=== PATIENT | female | born 1975 | race Caucasian/White ===

== ENCOUNTER → 2018-07-23 | Outpatient (CLI) | payer BC, OTHER ==
[2018-07-23 13:22] LABS: BILIRUBIN,URINE NEGATIVE (NEG); CLARITY,URINE CLEAR; COLOR,URINE YELLOW; NITRITE,URINE NEGATIVE (NEG); PROTEIN,URINE NEGATIVE (NEG-TRACE); UROBILINOGEN,URINE 0.2 mg/dL (0.2 mg/dL)
[2018-07-23 13:30] LABS: BACTERIA,URINE MODERATE /HPF (0-FEW); RBC,URINE OCC /HPF (0-2); SQUAMOUS EPITHELIAL CELL,UR MOD /LPF
--- NOTE | 2018-07-23 13:46 | RAD ---
Examination: Ultrasound right lower extremity venous duplex HISTORY: History of right leg pain, swelling TECHNIQUE: Grayscale, color Doppler 2-D, spectral waveform analysis of the right lower extremity venous system was performed FINDINGS: The visualized common femoral vein, sequential femoral vein, popliteal vein demonstrate normal compression augmentation of flow. The visualized calf veins are patent In the region of pain, in the posterior lateral distal thigh there is a varicose vein demonstrates echogenicity within could be a thrombosed varicose vein IMPRESSION: 1. No evidence of deep venous thrombosis. 2. Thrombosed varicose superficial vein identified in the posterior lateral distal thigh region. Electronically signed by: Chapito Chavarria MD (07/23/2018 1:42 PM) [place] [id number]
[2018-07-23 13:59] LABS: ALBUMIN 3.7 g/dL (3.4-5.0); CALCIUM 9.3 mg/dL (8.5-10.1); CREATININE 0.8 mg/dL (0.6-1.0); GFR 78.3; POTASSIUM 3.6 mmol/L (3.5-5.1); TOTAL BILIRUBIN 0.8 mg/dL (0.2-1.0); TOTAL PROTEIN 7.5 g/dL (6.4-8.2)
[2018-07-23 14:00] LABS: CHOLESTEROL/HDL RATIO 4.3
[2018-07-23 14:08] LABS: FREE T4 0.97 ng/dL (0.76-1.46); THYROID STIM HORMONE (TSH) 3.086 uIU/mL (0.358-3.74)
[2018-07-23 22:15] LABS: CREAT RD UR 62.9 mg/dL (Not Estab.); MICRO CREAT RATIO <4.8 mg/g creat (0.0-30.0); MICROALB RD UR <3.0 ug/mL (Not Estab.)
[2018-07-24 19:14] LABS: HEMOGLOBIN A1C 5.7 % (4.8-5.6)
== END | disposition home or self-care (01) ==
LOC: US 12:13
PROVIDERS: ATTEND Family Medicine
DX: I83.891 Varicose veins of right lower extremity with other complications (principal); I10 Essential (primary) hypertension; E03.9 Hypothyroidism, unspecified; E78.5 Hyperlipidemia, unspecified; R73.01 Impaired fasting glucose
CPT/HCPCS: 36415; 80053; 80061; 81001; 82043; 82570; 83036; 84439; 84443; 87086; 93971

== ENCOUNTER → 2018-08-17 | Outpatient (CLI) | payer BC, OTHER ==
--- NOTE | 2018-08-17 15:23 | KCIC ---
3 view right knee 08/17/2018 Clinical indications: Anterior right knee pain for one month. COMPARISON: None. FINDINGS: Joint spaces maintained. There is a small suprapatellar knee joint effusion. No acute fracture or traumatic malalignment. Normal bony mineralization. IMPRESSION: 1. No acute osseous abnormality. 2. Small knee joint effusion. Electronically signed by: Esteban Donovan MD (08/17/2018 3:19 PM) [id number]
== END | disposition home or self-care (01) ==
LOC: KCIC 09:55
PROVIDERS: ATTEND Family Medicine
DX: M25.461 Effusion, right knee (principal)
CPT/HCPCS: 73562

== ENCOUNTER → 2018-09-16 | Outpatient (CLI) | payer BC, OTHER ==
--- NOTE | 2018-09-16 17:23 | KCIC ---
History: Routine Screening. Technique: Bilateral digital mammographic routine views were obtained with CAD - computer aided detection. Previous: March 09, 2015. Findings: Breast Tissue Density B :The breast tissue is composed of mixed fatty and fibroglandular tissue. There is an asymmetric density in the medial left breast on the CC view MLO view. There are no other suspicious findings. Recommendations: The patient should return for the following views: Rolled CC views, spot MLO view, an ML view to exclude a mass. Ultrasound may be necessary as well. BI-RADS Category 0: Incomplete. Need additional imaging evaluation. The mammography staff will provide imaging followup orders and will contact the patient for followup. "Our facility is accredited by the [employer] Mammography Program." Electronically signed by: Sanchez Sanon III, MD (09/16/2018 5:20 PM) [facility]
== END | disposition home or self-care (01) ==
LOC: KCIC MAMMO 15:07
PROVIDERS: ATTEND Family Medicine
DX: Z12.31 Encounter for screening mammogram for malignant neoplasm of breast (principal)
CPT/HCPCS: 77067

== ENCOUNTER → 2018-09-28 | Outpatient (CLI) | payer BC, MEDICAID ==
--- NOTE | 2018-09-28 09:10 | KCIC ---
LEFT DIAGNOSTIC MAMMOGRAPHY History: Abnormal screening mammogram. Comparison: Bilateral mammogram September 16, 2018 and diagnostic left mammogram March 22, 2015. Technique: Left ML, spot compression MLO and CC, and rolled medial and lateral CC digital mammogram views were obtained. Findings: Breast Tissue Density B : There are scattered areas of fibroglandular density. Asymmetry in the inner left breast mostly resolves with spot compression. Rolled medial and lateral CC views are identical to 2015. There are no dominant suspicious masses, suspicious microcalcifications or evidence of architectural distortion. IMPRESSION: Resolution of asymmetry in the inner left breast with additional views. Recommend return to routine mammogram screening. BI-RADS category 1: Negative. The images were reviewed with computer-aided detection. Patient information is entered into the reminder system with a target due date for the next screening mammogram. Mammography is the most sensitive method for finding small breast cancers, but it does not detect them all and is not a substitute for careful clinical examination. A negative mammogram does not negate a clinically suspicious finding and should not result in delay in biopsying a clinically suspicious abnormality. "Our facility is accredited by the [employer] Mammography Program." Electronically signed by: Lupillo Larson MD (09/28/2018 9:06 AM) [id number]
== END | disposition home or self-care (01) ==
LOC: KCIC MAMMO 08:03
PROVIDERS: ATTEND Family Medicine
DX: R92.8 Other abnormal and inconclusive findings on diagnostic imaging of breast (principal)
CPT/HCPCS: 77065

== ENCOUNTER → 2019-10-31 | Outpatient (CLI) | payer BC ==
--- NOTE | 2019-10-31 17:47 | KCIC ---
Bilateral digital screening mammograms: Reason for examination: Routine screening. Comparison is made to previous studies dated 09/16/2018 and 03/09/2015. Interpretation was made with the benefit of CAD. The skin and nipples show no abnormalities. No abnormal axillary lymph nodes are seen. The breast parenchyma shows scattered fibroglandular density. (Breast density: Category B.) There are no dominant masses, suspicious calcifications or architectural distortions. Impression: No evidence of malignancy. Recommend routine screening. BI-RADS Category 1: Negative. "Our facility is accredited by the [employer] Mammography Program." This patient's information has been entered into a reminder system for the patient to be notified with the results of her examination and a target date for the next mammogram. Electronically signed by: Bing Livingston MD (10/31/2019 5:44 PM) [id number]
== END | disposition home or self-care (01) ==
LOC: KCIC MAMMO 17:01
PROVIDERS: ATTEND Family Medicine
DX: Z12.31 Encounter for screening mammogram for malignant neoplasm of breast (principal)
CPT/HCPCS: 77067

== ENCOUNTER 2020-10-15 12:26 | Emergency (ER) | payer BC, OTHER ==
[~2020-10-15] VITALS: Ht 157.5 cm; Wt 122.7 kg
[2020-10-15] MEDS ORDERED: DEXAMETHASONE SOD PHOS 20 MG/5 ML VIAL. IV ONE (13:30)
[2020-10-15 13:57] LABS: BASO % 1 % (0-3); EOS # 0.1 x10^3/uL (0.0-0.7); EOS % 3 % (0-3); HEMATOCRIT 43.1 % (36.0-47.0); HEMOGLOBIN 14.6 g/dL (12.0-15.5); LYMPH # 1.6 x10^3/uL (1.0-4.8); LYMPH % 36 % (24-48); MEAN CORPUSCULAR HEMOGLOBIN 29 pg (25-35); MEAN CORPUSCULAR HGB CONC 34 g/dL (31-37); MEAN CORPUSCULAR VOLUME 86 fL (79-100); MONO # 0.3 x10^3/uL (0.0-1.1); MONO % 6 % (0-9); NEUT # 2.5 x10^3/uL (1.8-7.7); NEUT % 55 % (31-73); PLATELET COUNT 194 x10^3/uL (140-400); RED BLOOD COUNT 5.01 x10^6/uL (3.50-5.40); RED CELL DISTRIBUTION WIDTH 13.8 % (11.5-14.5); WHITE BLOOD COUNT 4.6 x10^3/uL (4.0-11.0)
--- NOTE | 2020-10-15 13:59 | RAD ---
XR CHEST 1V INDICATION: SOA, cough, COVID+ / Spl. Instructions: / History: . COMPARISON STUDY: None. FINDINGS: Lungs: Low lung volume. No pulmonary mass or consolidation. The tracheobronchial tree and hilar struc tures are normal. Pleura: No pleural effusion or pneumothorax. Heart and Mediastinum: The cardiomediastinal silhouette is normal. The great vessels of the thorax ar e normal. IMPRESSION: Low lung volume. No consolidation. Electronically signed by: Abdullahi Her MD (10/15/2020 1:56 PM) [facility]
--- NOTE | 2020-10-15 14:14 | EKG ---
[facility] [address] [place] [address] Test Date: 2020-10-15 Test Time: 13:07:02 Pat Name: OMAIRA YOUNG Department: Room: Gender: F Boat Laborer: : 1975 Requested By: ORALIA WERNER Order Number: [id number] Reading MD: Mack Richey Measurements Intervals [place] Rate: 109 P: 28 MA: 140 QRS: 19 QRSD: 78 T: 28 QT: 310 QTc: 419 Interpretive Statements SINUS TACHYCARDIA Electronically Signed On 10-23-2020 10:21:09 NURSE EMERGENCY ROOM by Mack Richey
[2020-10-15] MEDS ORDERED: KETOROLAC 30 MG/ML VIAL. IVP ONE (14:30)
[2020-10-15 15:01] LABS: CALCIUM 8.5 mg/dL (8.5-10.1); CREATININE 0.7 mg/dL (0.6-1.0); GFR 90.5; POTASSIUM 3.8 mmol/L (3.5-5.1)
[2020-10-15 15:07] LABS: ALBUMIN 3.3 g/dL (3.4-5.0); TOTAL BILIRUBIN 0.5 mg/dL (0.2-1.0); TOTAL PROTEIN 6.7 g/dL (6.4-8.2)
--- NOTE | 2020-10-15 16:41 | PHYS DOC ---
Past Medical History Past Medical History: Anxiety, Depression, Hypertension, Hypothyroid Past Surgical History: Cholecystectomy, Hysterectomy, Tubal ligation Smoking Status: Never Smoker Alcohol Use: Occasionally General Adult EDM: Chief Complaint: SHORTNESS OF BREATH HPI: HPI: Patient is a 45 year old female with history of anxiety, depression, hypertension, hypothyroidism, presenting to the ED today complaining of body aches, generalized headaches, stuffy nose, fatigue, cough, shortness of air, loss of taste or smell, symptoms began on October 09, 2020. She states she was diagnosed with COVID-19 on October 08, 2020. 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 Denies any chest pain. Reports subjective fevers. Review of Systems: Review of Systems: Constitutional: Reports fatigue, subjective fevers, body aches and chills Eyes: Denies change in visual acuity. [] HENT: Denies nasal congestion or sore throat. [] Respiratory: Reports cough, shortness of breath, loss of test and smell Cardiovascular: Denies chest pain or edema. [] GI: Denies abdominal pain, nausea, vomiting, bloody stools or diarrhea. [] : Denies dysuria. [] Musculoskeletal: Denies back pain or joint pain. [] Integument: Denies rash. [] Neurologic: Ports headaches, focal weakness or sensory changes. [] Psychiatric: Denies depression or anxiety. [] Heart Score: Risk Factors: Risk Factors: DM, Current or recent (<one month) smoker, HTN, HLP, family history of CAD, obesity. Risk Scores: Score 0 - 3: 2.5% MACE over next 6 weeks - Discharge Home Score 4 - 6: 20.3% MACE over next 6 weeks - Admit for Clinical Observation Score 7 - 10: 72.7% MACE over next 6 weeks - Early Invasive Strategies Current Medications: Current Medications Medications (Trade) Dose Ordered Sig/Ary Start Time Stop Time Status Last Admin Dose Admin Dexamethasone Sodium Phosphate (Decadron) 10 mg 1X ONCE 10/15/20 13:30 10/15/20 13:31 DC 10/15/20 13:23 10 MG Ketorolac Tromethamine (Toradol 30mg Vial) 30 mg 1X ONCE 10/15/20 14:30 10/15/20 14:31 DC 10/15/20 14:33 30 MG Allergies: Allergies: Allergies Coded Allergies Type Severity Reaction Last Updated Verified No Known Drug Allergies 10/15/20 No Physical Exam: PE: Constitutional: Well developed, well nourished, no acute distress, non-toxic appearance. [] HENT: Normocephalic, atraumatic, bilateral external ears normal, oropharynx moist, no oral exudates, nose normal. [] Eyes: PERRLA, EOMI, conjunctiva normal, no discharge. [] Neck: Normal range of motion, no tenderness, supple, no stridor. [] Cardiovascular:Heart rate regular rhythm, no murmur [] Lungs & Thorax: Bilateral breath sounds clear to auscultation [] Abdomen: Bowel sounds normal, soft, no tenderness, no masses, no pulsatile masses. [] Skin: Warm, dry, no erythema, no rash. [] Back: No tenderness, no CVA tenderness. [] Extremities: No tenderness, no cyanosis, no clubbing, ROM intact, no edema. [] Neurologic: Alert and oriented X 3, normal motor function, normal sensory function, no focal deficits noted. [] Psychologic: Flat affect, appears anxious, Current Patient Data: Labs: Laboratory Tests Test 10/15/20 13:18 10/15/20 14:37 White Blood Count 4.6 x10^3/uL (4.0-11.0) Red Blood Count 5.01 x10^6/uL (3.50-5.40) Hemoglobin 14.6 g/dL (12.0-15.5) Hematocrit 43.1 % (36.0-47.0) Mean Corpuscular Volume 86 fL (79-100) Mean Corpuscular Hemoglobin 29 pg (25-35) Mean Corpuscular Hemoglobin Concent 34 g/dL (31-37) Red Cell Distribution Width 13.8 % (11.5-14.5) Platelet Count 194 x10^3/uL (140-400) Neutrophils (%) (Auto) 55 % (31-73) Lymphocytes (%) (Auto) 36 % (24-48) Monocytes (%) (Auto) 6 % (0-9) Eosinophils (%) (Auto) 3 % (0-3) Basophils (%) (Auto) 1 % (0-3) Neutrophils # (Auto) 2.5 x10^3/uL (1.8-7.7) Lymphocytes # (Auto) 1.6 x10^3/uL (1.0-4.8) Monocytes # (Auto) 0.3 x10^3/uL (0.0-1.1) Eosinophils # (Auto) 0.1 x10^3/uL (0.0-0.7) Basophils # (Auto) 0.0 x10^3/uL (0.0-0.2) Lactic Acid Level 2.9 mmol/L (0.4-2.0) H Sodium Level 140 mmol/L (136-145) Potassium Level 3.8 mmol/L (3.5-5.1) Chloride Level 103 mmol/L (98-107) Carbon Dioxide Level 25 mmol/L (21-32) Anion Gap 12 (6-14) Blood Urea Nitrogen 11 mg/dL (7-20) Creatinine 0.7 mg/dL (0.6-1.0) Estimated GFR (Cockcroft-Gault) 90.5 BUN/Creatinine Ratio 16 (6-20) Glucose Level 134 mg/dL (70-99) H Calcium Level 8.5 mg/dL (8.5-10.1) Magnesium Level 2.0 mg/dL (1.8-2.4) Total Bilirubin 0.5 mg/dL (0.2-1.0) Aspartate Amino Transferase (AST) 45 U/L (15-37) H Alanine Aminotransferase (ALT) 62 U/L (14-59) H Alkaline Phosphatase 90 U/L (46-116) Troponin I Quantitative < 0.017 ng/mL (0.000-0.055) EV-Sqd-U-Type Natriuretic Peptide 6 pg/mL (0-124) Total Protein 6.7 g/dL (6.4-8.2) Albumin 3.3 g/dL (3.4-5.0) L Albumin/Globulin Ratio 1.0 (1.0-1.7) Laboratory Tests 10/15/20 13:18 Laboratory Tests 10/15/20 14:37 Vital Signs: Vital Signs Date Time Temp Pulse Resp B/P (MAP) Pulse Ox O2 Delivery O2 Flow Rate FiO2 10/15/20 15:51 98 28 133/63 (86) 94 Room Air 10/15/20 12:37 98.9 98.9 EKG: EKG: [] Radiology/Procedures: Radiology/Procedures: []REASON: SOA, cough, COVID+ PROCEDURE: PORTABLE CHEST 1V XR CHEST 1V INDICATION: SOA, cough, COVID+ / Spl. Instructions: / History: . COMPARISON STUDY: None. FINDINGS: Lungs: Low lung volume. No pulmonary mass or consolidation. The tracheobronchial tree and hilar structures are normal. Pleura: No pleural effusion or pneumothorax. Heart and Mediastinum: The cardiomediastinal silhouette is normal. The great vessels of the thorax are normal. IMPRESSION: Low lung volume. No consolidation. Electronically signed by: Shyam Levin MD (10/15/2020 1:56 PM) [facility] DICTATED and SIGNED BY: SHYAM LEVIN MD DATE: 10/15/20 [id number] Course & Med Decision Making: Course & Med Decision Making Pertinent Labs and Imaging studies reviewed. (See chart for details) This is a 45-year-old female patient presenting to the ED today complaining of body aches, chills, headaches, stuffy nose, fatigue, cough shortness of breath loss of taste or smell, symptoms began October 09, 2020, she was diagnosed with COVID-19 October 08, 2020. O2 sat 95% on room air on arrival, heart rate 111, respiration 24 on room air, blood pressure 160/101.... CBC with no acute findings, CMP with a slightly elevated AST at 45, ALT at 62, ALK is normal. Chest x-ray with no acute findings Initial lactic was 2.9, repeat lactic was 1.9. Discharge to home. Follow-up with PCP. Brooke Disclaimer: Brooke Disclaimer: This electronic medical record was generated, in whole or in part, using a voice recognition dictation system. Departure Departure Impression: Primary Impression: Lab test positive for detection of COVID-19 virus Additional Impressions: Cough Head ache Qualified Codes: R51.9 - Headache, unspecified Shortness of breath Disposition: 01 DC HOME SELF CARE/HOMELESS Condition: STABLE Referrals: IVANNA LOUIS APRN (PCP) followup with your doctor in 1-2 weeks Patient Instructions: Cough, Adult, [id number] Additional Instructions: You were evaluated in the emergency room for Covid related symptoms. Please take the prescribed prednisone as ordered. Take Tylenol/Motrin for pain or fever. Follow-up with your doctor in 1 to 2 weeks. Scripts Albuterol Sulfate (Proair Hfa) 8.5 Gm Hfa.aer.ad 2 PUFF IH PRN Q4-6HRS PRN for wheezing for 21 Days, #1 INHALER 0 Refills Prov: ORALIA WERNER APRN 10/15/20 Benzonatate (TESSALON PERLE) 100 Mg Capsule 1 CAP PO TID, #30 CAP Prov: ORALIA WERNER APRN 10/15/20 Prednisone (PREDNISONE) 50 Mg Tablet 1 TAB PO DAILY, #5 TAB Prov: ORALIA WERNER APRN 10/15/20 ORALIA WERNER APRN Oct 15, 2020 16:41
[2020-10-15] MEDS ORDERED: BENZ100C PO (17:24)
[2020-10-15] MEDS ORDERED: PRED50TA PO (17:24)
[2020-10-15] MEDS ORDERED: ALBU2.5V8 IH (17:24)
[2020-10-15 17:51] VITALS: BP 164/86
== END 2020-10-15 18:23 | disposition home or self-care (01) ==
LOC: ER 12:26
DX: U07.1 COVID-19 (principal); R05 Cough; R06.02 Shortness of breath; R50.9 Fever, unspecified; R53.83 Other fatigue; R51.9 Headache, unspecified; F41.9 Anxiety disorder, unspecified; F32.9 Major depressive disorder, single episode, unspecified; I10 Essential (primary) hypertension; E03.9 Hypothyroidism, unspecified; Z90.710 Acquired absence of both cervix and uterus; Z90.49 Acquired absence of other specified parts of digestive tract; Z98.51 Tubal ligation status
CPT/HCPCS: 36415; 71045; 80053; 83605; 83735; 83880; 84484; 85025; 87040; 93005; 96374; 96375; 99285; J1100; J1885

== ENCOUNTER → 2021-03-21 | Outpatient (CLI) | payer OTHER ==
[~2021-03-21] MED LIST: ALBU2.5V8 IH; BENZ100C PO; CHOL500021 PO; DEXT30CA6 PO; FLUO20CA22 PO; FLUO40CA9 PO; GABA-585 PO; LEVO75TA5 PO; LISI1TAB39 PO; METF500T16 PO; PRED50TA PO; TIZA-75 PO; TRAM50TA PO
--- NOTE | 2021-03-21 17:26 | KCIC ---
XR LUMBAR SPINE 4+V History: Reason: LBP 1 month, Rt hip pain. / Spl. Instructions: / History: Technique: 5 views lumbar spine. Comparison: None. Findings: Mild retrolisthesis L5 on S1. Chronic anterior vertebral body wedging of the lower thoracic spine. No acute fracture. Multilevel degenerative disc changes most prominent moderate L5-S1. Lower lumbar fac et arthropathy. Impression: 1. Multilevel lumbar spondylosis most prominent L5-S1. 2. Mild retrolisthesis L5 on S1. Electronically signed by: Colin Dc DO (03/21/2021 5:23 PM) [id number]
== END ==
LOC: KCIC 09:45
PROVIDERS: ATTEND Nurse Practitioner Family
DX: M47.817 Spondylosis without myelopathy or radiculopathy, lumbosacral region (principal); M51.37 Other intervertebral disc degeneration, lumbosacral region; M43.07 Spondylolysis, lumbosacral region
CPT/HCPCS: 72110

== ENCOUNTER → 2021-05-14 | Outpatient (CLI) | payer OTHER ==
[~2021-05-14] MED LIST changes: -CHOL500021 PO; -DEXT30CA6 PO; -FLUO20CA22 PO; -FLUO40CA9 PO; -GABA-585 PO; -LEVO75TA5 PO; -LISI1TAB39 PO; -METF500T16 PO; -TIZA-75 PO; -TRAM50TA PO
--- NOTE | 2021-05-14 09:47 | KCIC ---
EXAM: Lumbar spine MRI without contrast. HISTORY: Lumbar pain. Radiculopathy. TECHNIQUE: Multiplanar, multisequence magnetic resonance imaging of the lumbar spine was performed wi thout contrast. COMPARISON: Radiographs dated 03/21/2021. FINDINGS: There is no significant listhesis. The vertebral bodies are normal in height. There is mult ilevel endplate remodeling. There are few small endplate Schmorl's nodes. There are few osseous heman giomas. There is no fracture or suspicious osseous lesion. The conus terminates at L1. At T11-T12, there is a left paracentral disc protrusion and annular tear superimposed on a disc bulge and endplate remodeling. There is minimal right greater than left facet arthropathy. There is mild c entral canal stenosis and deformation of the left ventral aspect of the spinal cord. There is a dilat ed central canal extending from the T11-T12 disc space to the mid aspect of T12, measuring 1 mm in ca liber. At T12-L1, there is no stenosis. At L1-L2, there is endplate remodeling. There is mild bilateral facet arthropathy. There is no stenos is. At L2-L3, there is a mild disc bulge. There is endplate remodeling. There is mild bilateral facet art hropathy. There is no stenosis. At L3-L4, there is a minimal disc bulge. There is endplate remodeling. There is mild bilateral facet arthropathy. There is no stenosis. At L4-L5, there is a posterior central disc protrusion and minimal superior extrusion superimposed on a mild disc bulge. There is mild endplate remodeling. There is mild bilateral facet arthropathy. The re is no stenosis. At L5-S1, there is endplate remodeling. There is mild bilateral facet arthropathy. There is mild righ t foraminal stenosis. IMPRESSION: 1. T11-T12: Left paracentral disc protrusion and annular tear contributing to mild central canal sten osis and deformation of the spinal cord. There is a superimposed minimal syringohydromyelia or ventri culus terminalis at this level. 2. Multilevel degenerative change involving the lumbar spine, described in detail above. This is asso ciated with mild right foraminal stenosis at L5-S1. Electronically signed by: Melva Guzman MD (05/14/2021 9:45 AM) [id number]
== END ==
LOC: KCIC MRI 07:52
PROVIDERS: ATTEND Nurse Practitioner Family
DX: M47.817 Spondylosis without myelopathy or radiculopathy, lumbosacral region (principal); M47.815 Spondylosis without myelopathy or radiculopathy, thoracolumbar region; M51.25 Other intervertebral disc displacement, thoracolumbar region; M51.24 Other intervertebral disc displacement, thoracic region; M48.07 Spinal stenosis, lumbosacral region; M48.04 Spinal stenosis, thoracic region; M51.46 Schmorl's nodes, lumbar region; D18.09 Hemangioma of other sites
CPT/HCPCS: 72148

== ENCOUNTER → 2021-08-15 | Outpatient (CLI) | payer OTHER ==
[~2021-08-15] MED LIST changes: +CHOL500021 PO; +DEXT30CA6 PO; +FLUO20CA22 PO; +GABA-585 PO; +LEVO75TA5 PO; +LISI1TAB39 PO; +METF500T16 PO; +TIZA-75 PO
--- NOTE | 2021-08-15 12:36 | PDOC1 ---
INITIAL PAIN CONSULT DATE OF SERVICE: DOS: DATE: 08/15/21 TIME: 12:30 CHIEF COMPLAINT: Chief Complaint: Low back and right lower extremity pain HISTORY OF PRESENT ILLNESS: 46-year-old female presents with history of pain in the low back right lower extremity for 3 to 4 months not the result of any specific injury or accident that she is aware of but getting worse over time with pain in the low back rating the right lower extremity with walking standing better with sitting or laying down is radiating from the low back into the right lower extremity posterior gluteus posterior lateral thigh lateral anterior thigh anteromedial thigh medial lower leg as well as the lateral calf and posterior calf to the foot on the right side patient reports again worse with walking standing weightbearing better with sitting or lying down but wakes her from sleep least 3 times a night patient reports it can affect her bowel bladder control no incontinence but some significant frequency with the pain patient reports its effect ability to walk she has been avoiding going to the store or visiting family friends or she has to get out and walk patient has done physical therapy in the past and is still doing stretching strength exercises as well as trying to walk daily is becoming more difficult patient is taking ibuprofen as well as Tylenol Aleve [id number] topical ointments and patches as well without any significant long-lasting improvement patient rates her disability rating 0-10 10 being the worst is 8 with family home responsibilities 9 with recreation and social activity 7-8 with occupation 10 with sexual behavior 8 with self-care and 7 with life support activities. Patient scribes pain is burning and cramping in the back aching and radiating shooting in the right lower extremity. Patient did have an MRI scan of the lumbar spine showing at T11-12 left paracentral disc protrusion and annular tear superimposed on disc bulge and endplate remodeling L4-5 shows the posterior central protrusion with minimal superior extrusion superimposed on a mild disc bulge L3-4 shows mild bilateral facet arthropathy L5-S1 shows mild right foraminal stenosis as well. Patient reports no bowel or bladder incontinence. Patient reports no loss of function but significant fatigability the right lower extremity with ambulation and standing. PAST MEDICAL HISTORY: PMH: Hypertension, prediabetes PREVIOUS SURGERIES: Past Surgical Hx: Hysterectomy, tubal ligation, cholecystectomy CURRENT MEDICATIONS: Current Meds: Active Scripts Medications Dose Route/Sig Max Daily Dose Days Date Category Tizanidine Hcl 4 Mg Tablet 0.5 Tab PO QHS PRN 12/2/21 Reported Gabapentin (Gabapentin) 100 Mg Capsule 100 Mg PO TID 08/15/21 Reported D3-50 (Cholecalciferol (Vitamin D3)) 50,000 Unit Capsule 1 Cap PO WEEKLY 28 08/15/21 Reported Metformin Hcl 500 Mg Tablet 500 Mg PO DAILY 08/15/21 Reported Adderall Xr 30 Mg Capsule (Dextroamphetamine/Amphetamine) 30 Mg Cap.er.24h 1 Cap PO DAILYWBKFT MDD 1 Capsule(s) 30 08/15/21 Reported Fluoxetine Hcl 20 Mg Capsule 1 Cap PO DAILY 08/15/21 Reported Levothyroxine Sodium 75 Mcg Tablet 1 Tab PO DAILY 08/15/21 Reported Lisinopril-Hctz 20-25 Mg Tab (Lisinopril/Hydrochlorothiazide) 1 Each Tablet 1 Tab PO DAILY 08/15/21 Reported ALLERGIES; Allergies: Coded Allergies: No Known Drug Allergies (Unverified , 10/15/20) FAMILY HISTORY: Family Hx: Arthritis, breast cancer, pancreatic cancer SOCIAL HISTORY: Social Hx: Patient drinks alcohol very rarely maybe twice to 3 times a year does not smoke says any illegal illicit or recreational drugs is lives with her spouse and lives locally in [facility], patient works as a paraprofessional education assistant REVIEW OF SYSTEMS: ROS: Positive for those items mentioned in history of present illness, all systems are reviewed, otherwise negative ,and are complete full and well-documented on patient's chart. PHYSICAL EXAM: VS: Blood pressure is 132/85 pulse 84 respirations 18 temperature 98.2 F height is 5 foot 2 inches weight is 261 pounds PE: PHYSICAL EXAMINATION: GENERAL: The patient is awake, alert, oriented, appropriate, very pleasant in demeanor HEENT: Shows normocephalic, atraumatic. Extraocular movements are intact and symmetrical. Oral cavity: Mucous membranes moist and pink. Dentition is intact. NECK: Shows anterior throat supple without palpable lymphadenopathy noted. Swallow reflex symmetrical. CHEST: Shows normal on inspection. Breath sounds are clear bilaterally distant but no rales or rhonchi or wheezes. HEART: Shows S1, S2 clear. No murmurs auscultated. ABDOMEN: Soft, nontender, nondistended, obese. No palpable organomegaly is noted. BACK: Shows spine grossly in the midline. Normal-appearing cervical lordotic curvature. There is slightly increased thoracic kyphosis, some minor flattening of the lumbar lordotic curvature. Lumbar paraspinous muscles show symmetrical on inspection, on palpation shows some moderate tenderness diffusely throughout the upper, middle and lower distribution of the paraspinous muscles bilaterally and also into the lower thoracic paraspinous musculature, firm and tender, but without specific trigger points, without radiation of pain. The patient has good rotational motion of the lumbar spine, both laterally as well as extension and flexion without significant difficulty. No tenderness over the spinous processes, sacrum or sacroiliac regions. EXTREMITIES: Lower extremities show deep tendon reflexes 2+ in the patellar and tendo calcaneus tendons. Motor exam is 4 on a scale of 5 with right dorsiflexion, extension, quadriceps and hamstring flexion and 5/5 on the left. Peripheral pulses are 1 posterior tibial. No peripheral edema is noted bilaterally. Lower extremities are warm and dry to touch, equal in color and appearance. Straight leg raise noted to be positive on the right about 45 degrees, left side is []. Gaenslen's and Elmo's maneuvers are negative bilaterally. The patient is able to stand, stand her toes that significant difficulty loss of balance walks with a normal-appearing gait does not appear to favor the right of lower extremity significantly is not use any assistive devices to ambulate. SKIN: Shows warm and dry, good turgor. No edema. No sores, rashes or bruising throughout. IMPRESSION: Impression: 46-year-old female with 3 to 4-month history increasing pain low back right lower extremity radicular fashion following L4-5 dermatomal distribution. MRI scan lumbar spine as noted Hypertension Prediabetes Plan: Options were discussed with patient including conservative management continued physical therapies and interventional techniques. Patient elects interventional techniques. We discussed a lumbar epidural steroid injections description as well as anatomical models described procedure. Patient wait for preauthorization once obtained, will plan on translaminar approach L4-5 lumbar epidural steroid injection with fluoroscopic guidance. In the meantime, patient will be given Medrol Dosepak with instructions side effects to be aware of and will continue with stretching strength exercises on her own as well as analgesics as currently. TIFFANI ACOSTA MD Aug 15, 2021 12:36
== END | disposition home or self-care (01) ==
LOC: PNCL 07:53
PROVIDERS: ATTEND Anesthesiology
DX: M54.50 Low back pain, unspecified (principal); M79.604 Pain in right leg; I10 Essential (primary) hypertension; R73.03 Prediabetes; Z79.84 Long term (current) use of oral hypoglycemic drugs; Z79.899 Other long term (current) drug therapy; Z72.89 Other problems related to lifestyle; Z90.49 Acquired absence of other specified parts of digestive tract; Z98.51 Tubal ligation status; Z90.710 Acquired absence of both cervix and uterus; Z82.49 Family history of ischemic heart disease and other diseases of the circulatory system; Z80.3 Family history of malignant neoplasm of breast
CPT/HCPCS: 99205; G0463

== ENCOUNTER → 2021-08-29 | Outpatient (CLI) | payer OTHER ==
[~2021-08-29] MED LIST changes: +IOHEXOL 180 MG/ML 10 ML VIAL. ONE; +TRAM50TA PO; +methylPREDNISolone ACETATE 40 MG/ML VIAL. ONE; +methylPREDNISolone ACETATE 80 MG/ML VIAL. ONE
--- NOTE | 2021-08-29 08:18 | PDOC ---
Progress Note - Pain Clinic Date of Service: DOS: DATE: 08/29/21 TIME: 08:15 Diagnosis: Dx: Lumbar radiculopathy with lumbar degenerative disc disease and lumbar spinal stenosis History or Present Illness: HPI: 46-year-old female with complaints of low back and right lower extremity pain posterior gluteus posterior lateral thigh lateral anterior thigh anteromedial thigh medial calf and posterior calf worse with walking standing changing positions patient reports its aching and dull in the back burning and shooting in the leg radiating can be constant with weightbearing better with sitting or laying down generally does not awaken her from sleep at night. Patient reports it is 5-6 on average out of 10 7 at its worst and 0 its least is a 5 today. Patient reports no bowel or bladder incontinence no motor or sensory deficits but significant fatigability with patient in the right lower extremity. Patient reports she is having new pain in the left leg now as well of since previous discussion but is not traveling as far into the left leg as it does on the right side. Patient reports no bowel or bladder incontinence. Physical Exam: VS: Blood pressure is 143/110 pulse 93 respirations are 18 temperature is 98.6 F height 5 feet 2 inches weight is 260 pounds PE: PHYSICAL EXAMINATION: GENERAL: The patient is awake, alert, oriented, appropriate, very pleasant in demeanor HEENT: Shows normocephalic, atraumatic. Extraocular movements are intact and symmetrical. Oral cavity: Mucous membranes moist and pink. Dentition is intact. NECK: Shows anterior throat supple without palpable lymphadenopathy noted. Sw allow reflex symmetrical. CHEST: Shows normal on inspection. Breath sounds are clear bilaterally. HEART: Shows S1, S2 clear. No murmurs auscultated. ABDOMEN: Soft, nontender, nondistended. No palpable organomegaly is noted. BACK: Shows spine grossly in the midline. Normal-appearing cervical lordotic curvature. There is increased thoracic kyphosis, some mild flattening of the lumbar lordotic curvature. Lumbar paraspinous muscles show symmetrical on inspection, on palpation shows some moderate tenderness diffusely throughout the upper, middle and lower distribution of the paraspinous muscles without specific trigger points, without radiation of pain. The patient has good rotational motion of the lumbar spine, both laterally as well as extension and flexion without significant difficulty. EXTREMITIES: Lower extremities show deep tendon reflexes 2+ in the patellar and tendo calcaneus tendons. Motor exam is 4 on a scale of 5 with right dorsiflexion, extension, quadriceps and hamstring flexion and 5/5 on the left. Peripheral pulses are 1+ posterior tibial. No peripheral edema is noted bilaterally. Lower extremities are warm and dry to touch, equal in color and appearance. SKIN: Shows warm and dry, good turgor. No edema. No sores, rashes or bruising throughout. Procedure: Procedure: Options were discussed with the patient. Patient's old chart was reviewed as her current medication regimen updated current review of systems updated today as well. We will proceed with a lumbar epidural steroid injection today with fluoroscopic guidance. Risks were discussed including but not limited to: Bleeding, infection, possibility of epidural hematoma and subsequent neurological compromise, dural puncture, headaches, spinal cord and/or nerve damage, side effects of steroid medication, and poor results regarding pain control. Patient understands and wished to proceed. She will return to clinic in approximately 2 weeks for follow-up, was counseled as return appointment, activity level, and side effect to be aware of. Medication Injected: Med Injected: Procedure is lumbar epidural steroid injection under local anesthetic using sterile prep and drape at the L4-5 level using C-arm fluoroscopic guidance in b oth AP and lateral views medications injected is 120 mg Depo-Medrol +10mL preservative-free normal saline and 2 mL contrast- condition at discharge is stable patient tolerated procedure well had no complications. Condition at Discharge: Condition at Discharge: Condition at discharge stable, paced tolerated seizure well and had no complications. TIFFANI ACOSTA MD Aug 29, 2021 08:18
--- NOTE | 2021-08-29 08:19 | PDOC4 ---
Procedure Note: ICD 10 Code: ICD 10 Code: M54.16 M51.36 M4 8.06 Procedure Note: Patient was consented for lumbar epidural steroid injection with fluoroscopic guidance. Risks were discussed including but not limited to: Bleeding, infection, possibility of epidural hematoma and subsequent neurological compromise, dural puncture, headaches, spinal cord and/or nerve damage, side effects of steroid medication, and poor results regarding pain control. Patient understands and wished to proceed. Procedure is lumbar epidural steroid injection under local anesthetic using tigre rile prep and drape at the L4-5 level using C-arm fluoroscopic guidance in both AP and lateral views medications injected is 120 mg Depo-Medrol +10mL preservative-free normal saline and 2 mL contrast- condition at discharge is stable patient tolerated procedure well had no complications. TIFFANI ACOSTA MD Aug 29, 2021 08:19
== END | disposition home or self-care (01) ==
LOC: PNCL 07:51
PROVIDERS: ATTEND Anesthesiology
DX: M51.16 Intervertebral disc disorders with radiculopathy, lumbar region (principal); M48.061 Spinal stenosis, lumbar region without neurogenic claudication; Z79.84 Long term (current) use of oral hypoglycemic drugs; Z79.899 Other long term (current) drug therapy; Z72.89 Other problems related to lifestyle
CPT/HCPCS: 62323; J1030; J1040; Q9965

== ENCOUNTER → 2021-10-01 | Outpatient (CLI) | payer OTHER ==
[~2021-10-01] MED LIST changes: +FLUO40CA9 PO; -IOHEXOL 180 MG/ML 10 ML VIAL. ONE; -methylPREDNISolone ACETATE 40 MG/ML VIAL. ONE; -methylPREDNISolone ACETATE 80 MG/ML VIAL. ONE
--- NOTE | 2021-10-01 10:46 | PDOC ---
Progress Note - Pain Clinic Date of Service: DOS: DATE: 10/01/21 TIME: 10:44 Diagnosis: Dx: Lumbar radiculopathy with lumbar degenerative disease and lumbar spinal stenosis History or Present Illness: HPI: Telemedicine visit today with identity verified with full date of as well as full name, total time spent 11 minutes 46-year-old female via telemedicine visit today following lumbar epidural steroid injection August 29 patient had been prescribed tramadol and was doing very well with this takes it very sparingly not as many as 1 a day. Patient reports it does decrease the pain fairly significantly she had respiratory illness which prevented her from her last visit for injection and is now going to get her MRI scan later this week and requests a refill of the tramadol. Patient report still significant pain in the low back and into the right lower extremity as it was previously posterior gluteus posterior lateral thigh lateral anterior thigh and anterior medial lower leg patient reports the injection did help quite a bit about 50% but still sniffily painful and mostly at night but again not every night. Patient has had appropriate K tracks reporting to date. We will electronically prescribe tramadol 50 mg #40 with instructions and side effects aware discussed with the patient. Patient will follow-up in approximately 2 weeks as already scheduled. Physical Exam: PE: TIFFANI ACOSTA MD Oct 01, 2021 10:46
== END | disposition home or self-care (01) ==
LOC: PNCL 08:32
PROVIDERS: ATTEND Anesthesiology
DX: M51.16 Intervertebral disc disorders with radiculopathy, lumbar region (principal); M48.061 Spinal stenosis, lumbar region without neurogenic claudication; Z79.899 Other long term (current) drug therapy; Z72.89 Other problems related to lifestyle
CPT/HCPCS: 99212; G0463

== ENCOUNTER → 2021-10-14 | Outpatient (CLI) | payer OTHER ==
--- NOTE | 2021-10-14 10:33 | PDOC ---
Progress Note - Pain Clinic Date of Service: DOS: DATE: 10/14/21 TIME: 10:28 Diagnosis: Dx: Lumbar radiculopathy with lumbar spinal stenosis and lumbar degenerative disc disease History or Present Illness: HPI: 46-year-old female returns for follow-up status post lumbar epidural steroid traction x1. Patient reports about 75% improvement initially and then over about 2 weeks. Is now come back to an extent but still about 50% overall improvement over the past 3 weeks now patient reports pain was much reduced she was increase her activity distance walking doing household activities work activities much greater ease and comfort walking greater distances also decreasing her tramadol which she was taking and oral analgesics such as Motrin which she was only using about once a week now patient reports the pain is returning in the low back the right lower extremity she is starting to use the medication more frequently patient reports is across the low back and of the right lower extremity posterior gluteus posterior thigh posterior calf with cramping now in the calf which is new burning stabbing aching pain in the low back also dull also shooting in the right leg patient report is radiating can be severe at times patient reports he was in tears secondary to the pain yesterday when she was working and standing on her right leg for over an hour. Patient continues with stretching strengthening exercises and other physical therapy modalities. Patient reports no loss of motor function but significant fatigability the right leg with standing walking, better with sitting down but is waking her from sleep about every 2-3 hours now originally she was sleeping much better through the night after her injection. Patient reports no bowel or bladder incontinence. Patient rates her pain as a 9 on scale 10 is worst over this past week 7 on average 0 its least and is a 7 today. Physical Exam: VS: Blood pressure is 164/111 pulse 107 respirations 16 temperature 98.5 F weight is 268 pounds. PE: PHYSICAL EXAMINATION: GENERAL: The patient is awake, alert, oriented, appropriate, very pleasant in demeanor HEENT: Shows normocephalic, atraumatic. Extraocular movements are intact and symmetrical. Oral cavity: Mucous membranes moist and pink. Dentition is intact. NECK: Shows anterior throat supple without palpable lymphadenopathy noted. Swallow reflex symmetrical. CHEST: Shows normal on inspection. Breath sounds are clear bilaterally, no rales or rhonchi. HEART: Shows S1, S2 clear. No murmurs auscultated. ABDOMEN: Soft, nontender, nondistended, obese. No palpable organomegaly is noted. BACK: Shows spine grossly in the midline. Normal-appearing cervical lordotic curvature. There is mildly increased thoracic kyphosis, some flattening of the lumbar lordotic curvature. Lumbar paraspinous muscles show symmetrical on inspection, on palpation shows some moderate tenderness diffusely throughout the upper, middle and lower distribution of the paraspinous muscles but without specific trigger points, without radiation of pain. The patient has good rotational motion of the lumbar spine, both laterally as well as extension and flexion without significant difficulty.s. EXTREMITIES: Lower extremities show deep tendon reflexes 2+ in the patellar and tendo calcaneus tendons. Motor exam is 4 on a scale of 5 with right dorsiflexion, extension, quadriceps and hamstring flexion and 5/5 on the left. Peripheral pulses are 1+ posterior tibial. No peripheral edema is noted bilaterally. Lower extremities are warm and dry to touch, equal in color and appearance. SKIN: Shows warm and dry, good turgor. No edema. No sores, rashes or bruising throughout. Procedure: Procedure: Options discussed with the patient. Patient's chart was reviewed as her current medication regimen updated current review of systems updated today as well. We will preauthorize patient for a second lumbar epidural steroid injection she did very well after the first injection with pain returning now in the L4-5 cathy matomal distribution in the right leg, with the patient originally reducing her pain medication significantly as well as increasing activity especially with greater comfort and ease with work activities. Once preauthorize, will have patient return for lumbar epidural steroid injection with fluoroscopic guidance at the L4-5 level translaminar approach. In the meantime, patient will continue with stretching and strength exercises as well as oral analgesics and will call Medrol Dosepak and for her with instructions side effects aware discussed with the medication. Medication Injected: Med Injected: None Condition at Discharge: Condition at Discharge: Condition at discharge is stable. TIFFANI ACOSTA MD Oct 14, 2021 10:33
== END | disposition home or self-care (01) ==
LOC: PNCL 09:58
PROVIDERS: ATTEND Anesthesiology
DX: M51.16 Intervertebral disc disorders with radiculopathy, lumbar region (principal); M48.061 Spinal stenosis, lumbar region without neurogenic claudication; Z79.84 Long term (current) use of oral hypoglycemic drugs; Z72.89 Other problems related to lifestyle
CPT/HCPCS: 99212; G0463

== ENCOUNTER → 2021-10-28 | Outpatient (CLI) | payer OTHER ==
[~2021-10-28] MED LIST changes: +DEXAMETHASONE PRES.FREE 10 MG/ML VIAL. ONE; +IOHEXOL 180 MG/ML 10 ML VIAL. ONE
--- NOTE | 2021-10-28 10:45 | PDOC ---
Progress Note - Pain Clinic Date of Service: DOS: DATE: 10/28/21 TIME: 10:38 Diagnosis: Dx: Lumbar radiculopathy with lumbar spinal stenosis and lumbar degenerative disc disease History or Present Illness: HPI: 46-year-old female returns for follow-up status post lumbar epidural steroid injection last on August 29, 2021. Patient reports she did very well 50% provement overall the pain is returning the low back and right lower extremity posterior gluteus posterior thigh posterior calf radiating into the lateral aspect of the thigh and the calf as well as the medial lower leg patient reports is a deep aching in the back dull shooting cramping in the leg is sometimes unbearable constant with standing walking changing positions better with sitting or laying down generally wakes her from sleep about once or twice at night patient usually reposition or apply heat pad to her back to help patient report is a 7 on scale 10 is worst 6-7 on average 4 to [place] is a 6 today. Patient reports no bowel or bladder incontinence but significant fatigability with the right leg specially standing and walking. Patient reports no loss of motor function no bowel or bladder incontinence. Patient is taking tramadol which is helpful and takes it only every few days or when she has had a long day at work with physical activity has no side effects with the medication. We will electronically prescribe a refill of tramadol 50 mg number dispensed 40 with instructions and side effects to be aware of discussed. Physical Exam: VS: Blood pressure is 154/105 pulse 102 respirations 16 temperature is 98.8 with Fahrenheit height is 5 feet 2 inches weight is 275 pounds. PE: PHYSICAL EXAMINATION: GENERAL: The patient is awake, alert, oriented, appropriate, very pleasant in demeanor HEENT: Shows normocephalic, atraumatic. Extraocular movements are intact and symmetrical. Oral cavity: Mucous membranes moist and pink. Dentition is intact. NECK: Shows anterior throat supple without palpable lymphadenopathy noted. Swallow reflex symmetrical. CHEST: Shows normal on inspection. Breath sounds are clear bilaterally, no rales or rhonchi. HEART: Shows S1, S2 clear. No murmurs auscultated. ABDOMEN: Soft, nontender, nondistended. No palpable organomegaly is noted. BACK: Shows spine grossly in the midline. Normal-appearing cervical lordotic curvature. There is slightly increased thoracic kyphosis, some flattening of the lumbar lordotic curvature. Lumbar paraspinous muscles show symmetrical on inspection, on palpation shows some moderate tenderness diffusely throughout the upper, middle and lower distribution of the paraspinous muscles, but without specific trigger points, without radiation of pain. The patient has good rotational motion of the lumbar spine, both laterally as well as extension and flexion without significant difficulty. No tenderness over the spinous processes, sacrum or sacroiliac regions. EXTREMITIES: Lower extremities show deep tendon reflexes 2+ in the patellar and tendo calcaneus tendons. Motor exam is 4 on a scale of 5 with right dorsiflexion, extension, quadriceps and hamstring flexion and 5/5 on the left. Peripheral pulses are 1+ posterior tibial. No peripheral edema is noted bilaterally. Lower extremities are warm and dry. SKIN: Shows warm and dry, good turgor. No edema. No sores, rashes or bruising throughout. Procedure: Procedure: Options were discussed with patient. Patient's old chart was reviewed as her current medication regimen updated current review of systems updated today as well. We will proceed with a lumbar epidural steroid injection today with fluoroscopic guidance. Risks were discussed including but not limited to: Bleeding, infection, possibility of epidural hematoma and subsequent neurological compromise, dural puncture, headaches, spinal cord and/or nerve damage, side effects of steroid medication, and poor results regarding pain control. Patient understands and wished to proceed. Patient will return to the clinic in approximately 2 weeks for follow-up, was counseled as to return appointment, activity level, and side effect to be aware of. Medication Injected: Med Injected: Procedure is lumbar epidural steroid injection under local anesthetic using sterile prep and drape at the L4-5 level using C-arm fluoroscopic guidance in both AP and lateral views medications injected is 20 mg dexamethasone +10mL preservative-free normal saline and 2 mL contrast- condition at discharge is stable patient tolerated procedure well had no complications. Condition at Discharge: Condition at Discharge: Condition at discharge stable, patient Marcy the procedure well and had no complications. TIFFANI ACOSTA MD Oct 28, 2021 10:45
--- NOTE | 2021-10-28 10:45 | PDOC4 ---
Procedure Note: ICD 10 Code: ICD 10 Code: M54.16 M51.36 M4 8.06 Procedure Note: Patient was consented for lumbar epidural steroid injection with fluoroscopic guidance. Risks were discussed including but not limited to: Bleeding, infection, possibility of epidural hematoma and subsequent neurological compromise, dural puncture, headaches, spinal cord and/or nerve damage, side effects of steroid medication, and poor results regarding pain control. Patient understands and wished to proceed. Procedure is lumbar epidural steroid injection under local anesthetic using tigre rile prep and drape at the L4-5 level using C-arm fluoroscopic guidance in both AP and lateral views medications injected is 20 mg dexamethasone +10mL preservative-free normal saline and 2 mL contrast- condition at discharge is stable patient tolerated procedure well had no complications. TIFFANI ACOSTA MD Oct 28, 2021 10:45
== END | disposition home or self-care (01) ==
LOC: PNCL 09:54
PROVIDERS: ATTEND Anesthesiology
DX: M51.16 Intervertebral disc disorders with radiculopathy, lumbar region (principal); M48.061 Spinal stenosis, lumbar region without neurogenic claudication; Z79.84 Long term (current) use of oral hypoglycemic drugs; Z79.899 Other long term (current) drug therapy; Z72.89 Other problems related to lifestyle
CPT/HCPCS: 62323; J1100; Q9965

== ENCOUNTER → 2021-11-11 | Outpatient (CLI) | payer OTHER ==
[~2021-11-11] MED LIST changes: -DEXAMETHASONE PRES.FREE 10 MG/ML VIAL. ONE; +DOCU-109 PO; +IBUP-1060 PO; -IOHEXOL 180 MG/ML 10 ML VIAL. ONE; +ZOLP10TA PO
--- NOTE | 2021-11-11 10:19 | PDOC ---
Progress Note - Pain Clinic Date of Service: DOS: DATE: 11/11/21 TIME: 10:13 Diagnosis: Dx: Lumbar radiculopathy with lumbar degenerative disc disease and lumbar spinal stenosis History or Present Illness: HPI: 46-year-old female returns for follow-up status post lumbar epidural steroid injection last seen 10/28/2021. With approximate 75% improvement after the last injection with pain returning in the low back and right lower extremity posterior gluteus posterior lateral thigh lateral anterior thigh anterior medial thigh into the posterior knee as well with weakness after about 15 minutes with standing or walking. Patient reports that she did very well after last injection initially was doing much better with distance walking doing household activities work activities try with greater ease and comfort sleeping better patient reports awakens her from sleep at various not every night patient reports her pain is a 7 on scale 10 is worse over the past week 5 on average 2 to [place] is a 2 today patient reports much better with sitting patient reports the pain is aching in the back dull in the back burning and stabbing in the leg on and off in intensity in the leg intermittent on the right side with some weakness but no overt motor loss patient reports still she is doing better than she did previously and is quite pleased with her progress thus far. Patient reports significant constipation after taking some tramadol several weeks ago where she had to have this resolved through the emergency department. Patient reports since that time she has taken tramadol again but has had not severe constipation from it and is maintaining her hydration level much higher. Patient reports he continues with stretching strength exercises at home as well as heat and ice pack application as well as tramadol also oral analgesics ibuprofen and Tylenol which helped only by about 30%. Patient reports no bowel or bladder incontinence . Physical Exam: VS: Blood pressure is 151/97 pulse 90 respirations 16 temperature 98.2 F weight is 267 pounds. PE: PHYSICAL EXAMINATION: GENERAL: The patient is awake, alert, oriented, appropriate, very pleasant in demeanor HEENT: Shows normocephalic, atraumatic. Extraocular movements are intact and symmetrical. Oral cavity: Mucous membranes moist and pink. Dentition is intact. NECK: Shows anterior throat supple without palpable lymphadenopathy noted. Swallow reflex symmetrical. CHEST: Shows normal on inspection. Breath sounds are clear bilaterally, distant but no rales or rhonchi. HEART: Shows S1, S2 clear. No murmurs auscultated. ABDOMEN: Soft, nontender, nondistended. No palpable organomegaly is noted. BACK: Shows spine grossly in the midline. Normal-appearing cervical lordotic curvature. There is slightly increased thoracic kyphosis, some mild flattening of the lumbar lordotic curvature. Lumbar paraspinous muscles show symmetrical on inspection, on palpation shows some moderate tenderness diffusely throughout the upper, middle and lower distribution of the paraspinous muscles, but without specific trigger points, without radiation of pain. The patient has good rotational motion of the lumbar spine, both laterally as well as extension and flexion without significant difficulty. No tenderness over the spinous proc esses, sacrum or sacroiliac regions. EXTREMITIES: Lower extremities show deep tendon reflexes 2+ in the patellar and tendo calcaneus tendons. Motor exam is 4 on a scale of 5 with right dorsiflexion, extension, quadriceps and hamstring flexion and 5/5 on the left. Peripheral pulses are 1+ posterior tibial. No peripheral edema is noted bilaterally. Lower extremities are warm and dry. SKIN: Shows warm and dry, good turgor. No edema. No sores, rashes or bruising throughout. Procedure: Procedure: Options discussed with patient. Patient's old chart was reviewed as her current medication regimen updated current review of systems updated today as well. We will preauthorize patient for a lumbar epidural steroid injection she did very well after last injection with about 75% improvement with pain returning now in the right lower extremity following an L4-5 dermatomal distribution. Patient continue with stretching strength exercise as well as oral analgesics as currently. Once approved, patient will return for lumbar epidural steroid injection translaminar approach at the L4-5 level with fluoroscopic guidance. Medication Injected: Med Injected: None Condition at Discharge: Condition at Discharge: Condition at discharge is stable. TIFFANI ACOSTA MD Nov 11, 2021 10:19
== END | disposition home or self-care (01) ==
LOC: PNCL 09:34
PROVIDERS: ATTEND Anesthesiology
DX: M51.16 Intervertebral disc disorders with radiculopathy, lumbar region (principal); M48.061 Spinal stenosis, lumbar region without neurogenic claudication; Z79.899 Other long term (current) drug therapy; Z98.890 Other specified postprocedural states; Z72.89 Other problems related to lifestyle
CPT/HCPCS: 99212; G0463

== ENCOUNTER → 2021-12-02 | Outpatient (CLI) | payer OTHER ==
[~2021-12-02] MED LIST changes: +DEXAMETHASONE PRES.FREE 10 MG/ML VIAL. ONE; +IOHEXOL 180 MG/ML 10 ML VIAL. ONE
--- NOTE | 2021-12-02 09:03 | PDOC ---
Progress Note - Pain Clinic Date of Service: DOS: DATE: 12/02/21 TIME: 08:59 Diagnosis: Dx: Lumbar radiculopathy with lumbar degenerative disc disease and lumbar spinal stenosis History or Present Illness: HPI: 46-year-old female returns for follow-up status post lumbar epidural steroid injection x2 with very good results overall 80% improvement now down to about 50% improvement patient reports new change in pain that the pain is now only in the left lower extremity as well as the low back right leg is completely resolved patient reports some pain in the shoulders as well but her main complaint is low back and now left lower extremity pain pain rating the posterior gluteus posterior lateral thigh lateral anterior thigh anteromedial thigh medial lower leg into the ankle and is significantly altering her strength and ability to bear weight on the left leg patient is limping significantly on presentation today reports her pain is a 10 on scale 10 is worst average and least over the past few days and is a 10 today patient reports aching sharp in the back, dull and shooting in the low back as well as tingling and burning radiating in the leg on the left side and stabbing can be severe and unbearable as well patient reports initially though she is doing much better distance walking doing household activities work activities until about 2 days ago the pain returned and it was on the left side now as presently. Patient reports no loss of motor function but significant fatigability of the left leg and pain with weightbearing. Patient reports no bowel or bladder incontinence currently. Physical Exam: VS: Blood pressure is 198/100 pulse 94 respirations of 17 temperature is 98.2 F height 5 feet 2 inches weight is 267 pounds. PE: PHYSICAL EXAMINATION: GENERAL: The patient is awake, alert, oriented, appropriate, very pleasant in demeanor HEENT: Shows normocephalic, atraumatic. Extraocular movements are intact and symmetrical. Oral cavity: Mucous membranes moist and pink. Dentition is intact. NECK: Shows anterior throat supple without palpable lymphadenopathy noted. Swallow reflex symmetrical. CHEST: Shows normal on inspection. Breath sounds are clear bilaterally, no rales or rhonchi auscultated. HEART: Shows S1, S2 clear. No murmurs auscultated. ABDOMEN: Soft, nontender, nondistended. No palpable organomegaly is noted. BACK: Shows spine grossly in the midline. Normal-appearing cervical lordotic curvature. There is moderately increased thoracic kyphosis, some flattening of the lumbar lordotic curvature. Lumbar paraspinous muscles show symmetrical on inspection, on palpation shows some moderate tenderness diffusely throughout the upper, middle and lower distribution of the paraspinous muscles without specific trigger points, without radiation of pain. The patient has good rotational motion of the lumbar spine, both laterally as well as extension and flexion without significant difficulty. EXTREMITIES: Lower extremities show deep tendon reflexes 2+ in the patellar and tendo calcaneus tendons. Motor exam is 5 on a scale of 5 with right dorsiflexion, extension, quadriceps and hamstring flexion and 4/5 on the left. Peripheral pulses are 1+ posterior tibial. No peripheral edema is noted bilaterally. Lower extremities are warm and dry. SKIN: Shows warm and dry, good turgor. No edema. No sores, rashes or bruising throughout. Procedure: Procedure: Options discussed with patient. Patient's old chart was reviewed as her current medication regimen updated current review of systems updated today as well. We will proceed with lumbar epidural steroid injection today with fluoroscopic guidance. Risks were discussed including but not limited to: Bleeding, infection, possibility of epidural hematoma and subsequent neurological compromise, dural puncture, headaches, spinal cord and/or nerve damage, side effects of steroid medication, and poor results regarding pain control. Patient understands and wished to proceed. Patient will return to the clinic in approximately 2 weeks for follow-up, was counseled as to return appointment, activity level, and side effects to be aware of. Medication Injected: Med Injected: Procedure is lumbar epidural steroid injection under local anesthetic using sterile prep and drape at the L4-5 level using C-arm fluoroscopic guidance in both AP and lateral views medications injected is 20 mg dexamethasone +10mL preservative-free normal saline and 2 mL contrast- condition at discharge is stable patient tolerated procedure well had no complications. Condition at Discharge: Condition at Discharge: Condition at discharge stable, patient tolerated the procedure well and had no complications. TIFFANI ACOSTA MD Dec 02, 2021 09:03
--- NOTE | 2021-12-02 09:04 | PDOC4 ---
Procedure Note: ICD 10 Code: ICD 10 Code: M54.16 M51.36 M4 8.06 Procedure Note: Patient is consented for lumbar epidural steroid injection with fluoroscopic guidance. Risks were discussed including but not limited to: Bleeding, infection, possibility of epidural hematoma and subsequent neurological compromise, dural puncture, headaches, spinal cord and/or nerve damage, side effects of steroid medication, and poor results regarding pain control. Patient understands and wished to proceed. Procedure is lumbar epidural steroid injection under local anesthetic using ster ile prep and drape at the L4-5 level using C-arm fluoroscopic guidance in both AP and lateral views medications injected is 20 mg dexamethasone +10mL preservative-free normal saline and 2 mL contrast- condition at discharge is stable patient tolerated procedure well had no complications. TIFFANI ACOSTA MD Dec 02, 2021 09:04
== END | disposition home or self-care (01) ==
LOC: PNCL 07:51
PROVIDERS: ATTEND Anesthesiology
DX: M51.16 Intervertebral disc disorders with radiculopathy, lumbar region (principal); M48.061 Spinal stenosis, lumbar region without neurogenic claudication; Z79.899 Other long term (current) drug therapy; Z72.89 Other problems related to lifestyle
CPT/HCPCS: 62323; J1100; Q9965

== ENCOUNTER 2021-12-30 06:51 | Outpatient (CLI) | payer OTHER ==
[~2021-12-30] VITALS: Ht 157.5 cm; Wt 122.0 kg
[2021-12-30] VITALS (12 sets, daily range): BP systolic 101–151; BP diastolic 64–95
[~2021-12-30 06:51] MED LIST changes: -DEXAMETHASONE PRES.FREE 10 MG/ML VIAL. ONE; -IOHEXOL 180 MG/ML 10 ML VIAL. ONE
[2021-12-30] MEDS ORDERED: IODIXANOL 320 MG/ML 100 ML VIAL. ONE (07:38)
[2021-12-30] MEDS ORDERED: HEPARIN for ARTERIAL LINE 1,500 ML ONE (07:39)
[2021-12-30] MEDS ORDERED: LIDOCAINE 1% PF 2 ML VIAL. ONE (07:39)
[2021-12-30 07:50] LABS: HEMATOCRIT 42.6 % (36.0-47.0); HEMOGLOBIN 14.3 g/dL (12.0-15.5); RED BLOOD COUNT 4.85 x10^6/uL (3.50-5.40); RED CELL DISTRIBUTION WIDTH 13.3 % (11.5-14.5); WHITE BLOOD COUNT 7.1 x10^3/uL (4.0-11.0)
[2021-12-30 07:55] LABS: CALCIUM 9.5 mg/dL (8.5-10.1); CREATININE 0.8 mg/dL (0.6-1.0); GFR 77.2; POTASSIUM 4.1 mmol/L (3.5-5.1)
[2021-12-30] MEDS ORDERED: fentaNYL PF VIAL 100 MCG/2 ML VIAL ONE ×2 (07:59→09:34)
[2021-12-30] MEDS ORDERED: VERAPAMIL 5 MG/2 ML VIAL. ONE (07:59)
[2021-12-30] MEDS ORDERED: MIDAZOLAM HCL/PF 2 MG/2 ML VIAL. ONE ×2 (07:59→09:31)
[2021-12-30] MEDS ORDERED: HEPARIN for IV BOLUS 10,000 UNIT/10 ML VIAL. ONE (08:00)
--- NOTE | 2021-12-30 08:05 | EKG ---
[facility] [address] [place] [address] Test Date: 2021-12-30 Test Time: 08:00:33 Pat Name: OMAIRA YOUNG Department: Room: Gender: F Automatic Developer: : 1975 Requested By: IMANI BORJA Order Number: [id number] Reading MD: Mack Richey Measurements Intervals [place] Rate: 103 P: 30 WI: 146 QRS: 24 QRSD: 82 T: 19 QT: 324 QTc: 426 Interpretive Statements SINUS TACHYCARDIA Electronically Signed On 01-01-2022 18:20:55 CDT by Mack Richey
[2021-12-30] MEDS ORDERED: NITROGLYCERIN 200 MCG/2 ML SYRINGE FOR CATH/VASC LAB. ONE (08:06)
[2021-12-30] MEDS ORDERED: ALPR0.5T6 PO (08:10)
[2021-12-30] MEDS ORDERED: BUSP5TAB PO (08:10)
[2021-12-30] MEDS ORDERED: VERAPAMIL 5 MG/2 ML VIAL. IART ONE (08:45)
[2021-12-30] MEDS ORDERED: MIDAZOLAM HCL/PF 2 MG/2 ML VIAL. IV ONE (08:45)
[2021-12-30] MEDS ORDERED: fentaNYL PF VIAL 100 MCG/2 ML VIAL IV ONE (08:45)
[2021-12-30] MEDS ORDERED: IODIXANOL 320 MG/ML 100 ML VIAL. IART ONE (08:45)
[2021-12-30] MEDS ORDERED: NITROGLYCERIN 200 MCG/2 ML SYRINGE FOR CATH/VASC LAB. IART ONE (08:45)
[2021-12-30] MEDS ORDERED: CONTRAST GIVEN. MC PRN (08:45)
[2021-12-30] MEDS ORDERED: HEPARIN for IV BOLUS 10,000 UNIT/10 ML VIAL. IART ONE (08:45)
[2021-12-30] MEDS ORDERED: LIDOCAINE 1% PF 2 ML VIAL. INJ ONE (08:45)
--- NOTE | 2021-12-30 10:02 | CARD ---
MR#: [id number] Date of Study: 12/30/2021 Ordering Physician: IMANI BURGOS, Referring Physician: IMANI BURGOS, Tech: RT Josephine(R) APPROVED REPORT Technologist: Emilee Boyce RT(R) Nurse: Izzy Lopez RN Procedure(s) performed: MODERATE SEDATION TIME: 26 MINUTES FLUORO TIME: 5.3 MIN DOSE: 58 GYCM2 CONTRAST: 60CC [facility], Coronary angiography HISTORY The patient is a 46 year-old female with a history of : family history of premature CAD. INDICATION The indication(s) include : unstable angina . CSHA Clinical Frailty Scale [facility] Clinical Frailty Scale: Managing Well Heart Failure Heart Failure: No CASE TECHNIQUE IV conscious sedation was used throughout procedure with appropriate monitoring and was performed in the presence of a registered nurse who was an independent trained observer other than the physician p erforming the procedure. During this case, Fluoroscopy and low osmolar contrast were used for imaging . Specimen(s) Removed: N/A Estimated Blood loss: 5 cc's. PROCEDURE NARRATIVE Clinical information: 46-year-old woman presents to the hospital for a planned outpatient cardiac catheterization in the se tting of unstable angina and strong family history with early sudden cardiac and coronary ather osclerosis. Procedure details: After appropriate informed consent the right wrist was prepped and draped in usual sterile fashion. The patient has significant lumbar disease and was in significant pain throughout the procedure despi te aggressive moderate sedation. Under 1% lidocaine local anesthesia a 6 [place] Island[place] sheath was placed in the right radial artery. Diagnos tic angiography was then performed with a 6 [place] TIG catheter and a 5 [place] EBU 3.0 guide catheter . Due to the patient's short aortic arch traditional catheters had difficulty with engagement of the left main coronary artery. Furthermore, given the patient's significant lumbar pain she was unable to lay still on the table making the diagnostic angiogram more complex. Nonetheless, adequate images were obtained. Left ventricular end-diastolic pressure was obtained with a TIG catheter and a pullb ack was performed. At case completion catheters and sheaths were removed and hemostasis was achieved via a Terumo radial band. No acute complications. Findings: Aorta 140/80 LVEDP 18 mmHg No LV to aortic pullback gradient Coronary angiography: Left main is a large-caliber vessel with normal angiographic appearance LAD is a moderate caliber vessel with normal angiographic appearance Left circumflex is a moderate caliber nondominant vessel with normal angiographic appearance RCA is a large-caliber dominant vessel with normal angiographic appearance Conclusion 1. Mildly elevated left-sided filling pressures consistent with chronic diastolic heart failure like ly secondary to obesity 2. No angiographic evidence of coronary artery disease Recommendations Aggressive Medical Therapy Weight Loss Reduction Program Signed by : Imani Burgos, Electronically Approved : 12/30/2021 10:01:53
--- NOTE | 2021-12-30 12:30 | NUR ---
Discharge Note: OMAIRA YOUNG Discharge instructions and discharge home medications reviewed with Patient and a copy given. All questions have been answered and understanding verbalized. Dressing to R wrist dry and intact, armboard in place The following instructions and handouts were given: sedation, radial site care Discontinued lines and drains: Peripheral IV intact. Patient discharged to Home or Self Care with Family Member via Wheelchair [facility] Addendum: 12/30/21 at 1233 by EMMETT MUNIZ RN Amended: Links added.
== END 2021-12-30 12:30 | disposition home or self-care (01) ==
LOC: CCL 06:51
PROVIDERS: ATTEND Internal Medicine Cardiovascular Disease
DX: I20.0 Unstable angina (principal); I11.0 Hypertensive heart disease with heart failure; I50.32 Chronic diastolic (congestive) heart failure; E11.9 Type 2 diabetes mellitus without complications; G47.30 Sleep apnea, unspecified; F41.9 Anxiety disorder, unspecified; F32.9 Major depressive disorder, single episode, unspecified; Z79.84 Long term (current) use of oral hypoglycemic drugs; Z79.899 Other long term (current) drug therapy; Z90.49 Acquired absence of other specified parts of digestive tract; Z98.51 Tubal ligation status; Z98.890 Other specified postprocedural states; Z82.49 Family history of ischemic heart disease and other diseases of the circulatory system; Z72.89 Other problems related to lifestyle
CPT/HCPCS: 36415; 80048; 85027; 85610; 93005; 93458; 99152; 99153; C1769; C1894; J1644; J2250; J3010; J3490; Q9967